=== PATIENT | female | born 1955 | race Caucasian/White ===

== ENCOUNTER → 2016-07-17 | Day surgery (SDC) | payer OTHER ==
[~2016-07-17] VITALS: Ht 167.6 cm; Wt 106.5 kg
[~2016-07-17] MED LIST: ALBI1INJ SQ; ANAS1 PO; CLIN150 PO; EMPA1TAB PO; GLIM2TAB PO; HYALURONIDASE/LIDOCAINE/EPINEPHRINE/BUPIVACAINE 6 ML SYR RIGHT EYE ONE; LEVO25TA4 PO; LIDOCAINE HCL 1% 20 ML VIAL ONE; LIDOCAINE HCL 1% 30 ML VIAL ONE; METF-382 PO; MIDAZOLAM HCL 2 MG/2 ML VIAL ONE; PROPARACAINE HCL 0.5% OPHT SOLN 15 ML BTL RIGHT EYE ONE; PROPOFOL 200 MG/20 ML AMP ONE; SODIUM CHLORID 0.9% 500 ML INJ 500 ML ONE; TIMO5SOL LEFT EYE; TRYPAN BLUE 0.5 ML OPHT DYE SYRINGE RIGHT EYE ONE; VITATAB25 PO
[2016-07-17] MEDS: CYCLOPENTOLATE HCL 1% OPHT SOLN 2 ML BTL RIGHT EYE SCH ×4 (08:45→09:00)
[2016-07-17] MEDS: TROPICAMIDE 1% OPHT SOLN 15 ML BTL RIGHT EYE SCH ×4 (08:45→09:00)
[2016-07-17] MEDS: FLURBIPROFEN 0.03% OPHT SOLN 2.5 ML BTL RIGHT EYE SCH ×4 (08:45→09:00)
[2016-07-17] MEDS: PHENYLEPHRINE HCL 10% OPTH SOLN 5 ML BTL RIGHT EYE SCH ×4 (08:45→09:00)
[2016-07-17 08:57] VITALS: BP 160/78; PULSE 75; RESP 18; TEMP 98; O2SAT 99
[2016-07-17 09:00] VITALS: PULSE 68
[2016-07-17 09:26] VITALS: PULSE 72
[2016-07-17] MEDS: TOBRAMYCIN/DEXAMETHASONE OPTH OINT 3.5 GM TUBE ONE ×2 (10:05→10:23)
[2016-07-17 10:30] VITALS: TEMP 97.9
[2016-07-17 10:55] VITALS: BP 152/85; PULSE 76; RESP 16; O2SAT 100
--- NOTE | 2016-07-20 04:44 | MP ---
cc: FOREIGN RICH MD [facility] #[id number] DATE OF SURGERY: 07/17/2016 PREOPERATIVE DIAGNOSIS: Visually significant cataract, right eye. POSTOPERATIVE DIAGNOSIS: Visually significant cataract, right eye. OPERATION: Phacoemulsification with posterior chamber lens implantation, right eye. SURGEON: Foreign Rich MD ANESTHESIA: Retrobulbar with MAC. COMPLICATIONS: None. PROCEDURE: After informed consent was obtained, the patient was brought into the operative suite and placed on appropriate monitors by the Anesthesia Service. The patient had received a prior retrobulbar injection of local anesthetic by the Anesthesia Service in the holding area. The patient's operative eye was then prepped and draped in the usual sterile fashion. A wire lid speculum was placed. A paracentesis incision was made in the peripheral cornea with a 1 mm junito keratome. The anterior chamber was filled with viscoelastic. The anterior chamber was then entered through a stepped, clear corneal incision using a sharp 3 mm junito keratome. A circular tear capsulorrhexis was then made with a bent needle cystitome. Following hydrodissection of the lens nucleus with balanced saline, phaco-emulsification of the nucleus was performed using a modified chopping technique. The remaining cortex was removed with irrigation/aspiration. The prior two procedures were both performed using the handpieces of the [employer] phaco unit. The capsular bag was then filled with viscoelastic. The intraocular lens was then injected into the capsular bag and positioned. The type of intraocular lens and its power can be found elsewhere in this chart. The remaining viscoelastic was then removed from the anterior chamber with the IA handpiece. The anterior chamber was reformed with balanced saline. The wound was then closed securely with stromal hydration. It was found to be watertight to an intraocular pressure of at least 30 mmHg by palpation. A small amount of balanced salt solution was then removed through the paracentesis site and the intraocular pressure at the end of the case was approximately 20 by palpation. All drapes were then removed. TobraDex ointment was then placed in the eye, which was closed beneath a semi-pressure patch dressing. The patient tolerated this procedure well and left the operating room awake and alert. The patient is to follow-up in my office in the morning. ADDENDUM: Due to the less than adequate view through the patient's cloudy cornea, VisionBlue was used to stain the anterior capsule prior to capsulorrhexis. MD ELIUD Juan/KELIN /11:44 AM /4:37 AM
== END | disposition home or self-care (01) ==
LOC: CSDC 07:26
PROVIDERS: ATTEND Optometrist Occupational Vision
DX: H25.811 Combined forms of age-related cataract, right eye (principal)
CPT/HCPCS: 00142; 66984; J2250; J7040; V2632